=== PATIENT | male | born 1990 | race Caucasian/White ===

== ENCOUNTER 2019-09-09 19:20 | Emergency (ER) | payer MEDICAID ==
[~2019-09-09] VITALS: Ht 182.9 cm; Wt 79.4 kg
[2019-09-09 19:30] VITALS: BP 133/81
== END 2019-09-09 20:14 | disposition home or self-care (01) ==
LOC: ER 19:25
DX: R07.89 Other chest pain (principal)

== ENCOUNTER 2020-07-16 16:13 | Emergency (ER) | payer MEDICAID ==
[~2020-07-16] VITALS: Ht 182.9 cm; Wt 81.6 kg
[2020-07-16 16:25] VITALS: BP 139/79
--- NOTE | 2020-07-16 16:40 | NUR ---
AT BEDSIDE FOR EVAL.
[2020-07-16] MEDS ORDERED: GABA300C PO (16:46)
== END 2020-07-16 16:53 | disposition home or self-care (01) ==
LOC: ER 16:22
DX: R20.2 Paresthesia of skin (principal); Z60.2 Problems related to living alone; Z79.899 Other long term (current) drug therapy
CPT/HCPCS: 82962-TC